=== PATIENT | male | born 1970 | race Caucasian/White ===

== ENCOUNTER 2017-01-21 17:12 | Inpatient (IN) | payer MEDICARE ==
--- NOTE | ~2017-01-21 | DS ---
Discharge Summary [id number] [place]. [address] NAME: ESSIE HINKLE : 66 STATUS : DIS IN PAT#: [id number] AGE: 46 ADM/REG DATE : 01/22/17 MR#: [id number] REPORT SERV DATE: 01/26/17 DICTATED BY: RADHA ZAMBRANO DATE: 01/25/17 REPORT STATUS : Draft TRANSCRIBED BY: MODL DATE: 01/25/17 ADMISSION DATE: 01/22/2017 DISCHARGE DATE: 01/25/2017 PRINCIPAL DIAGNOSIS: Abdominal wall abscess due to MRSA associated with a suprapubic catheter. SECONDARY DIAGNOSES: Urinary tract infection due to Pseudomonas aeruginosa and Enterococcus faecalis. Also type 2 diabetes exacerbated by infection, chronic paraplegia, obesity with sleep apnea, and chronic decubitus ulcer. HISTORY OF PRESENT ILLNESS: Please see Dr. Bhupinder Montague's dictation of 01/21/2017. HOSPITAL COURSE: Admitted with abdominal wall cellulitis, UTI. The patient received broad- spectrum antibiotics. Cultures grew out MRSA of the abscess and Pseudomonas and enterococcus in the urine. He was seen by Dr. Escobar who replaced suprapubic catheter on 01/24/2017 without complications. Arrangements were made for him to return home with fosfomycin for three additional doses and doxycycline to continue five more days of therapy for his abdominal wall cellulitis. Other medications were unchanged. TIARA/ARNOLD Radha Zambrano M.D. / [id number] CC: Brenna Pinon M.D. J. Patrick Dilworth, M.D.
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
[2017-01-21 17:06] LABS: BASOPHILS 0.4 %; BASOPHILS ABSOLUTE 0.03 10/3/uL (0.0-0.16); EOSINOPHILS 3.2 %; EOSINOPHILS ABSOLUTE 0.26 10/3/uL (0.0-0.53); ER CBC TAT 0 Hrs 05 Mins; HEMATOCRIT 48.9 % (40.0-51.0); HEMOGLOBIN 16.7 g/dL (13.6-17.8); IMMATURE GRANULOCYTES 0.7 %; IMMATURE GRANULOCYTES ABSOLUTE 0.06 10/3/uL (0.0-0.11); LYMPHOCYTES 20.2 %; LYMPHOCYTES ABSOLUTE 1.65 10/3/uL (0.67-4.30); MEAN CORPUS HGB CONC 34.2 g/dL (32.0-36.0); MEAN CORPUSCULAR HEMOGLOB 29.4 pg (26.0-34.0); MEAN CORPUSCULAR VOLUME 86.1 fL (80-100); MONOCYTES 5.6 %; MONOCYTES ABSOLUTE 0.46 10/3/uL (0.21-1.20); NEUTROPHILS 69.9 %; NEUTROPHILS ABSOLUTE 5.69 10/3/uL (2.02-8.40); PLATELET COUNT 210 10/3/uL (150-400); RBC DISTRIBUTION WIDTH 14.7 % (12.0-16.0); RED CELL COUNT 5.68 10/6/uL (4.7-6.1); WHITE BLOOD CELLS 8.2 10/3/uL (4.5-10.5)
[2017-01-21 17:08] LABS: MANUAL DIFF NO %
[~2017-01-21 17:12] MED LIST: ACET500CAP PO; ACETSUP650 PR; ACIDOPHILU1 PO; ACIDOPHILU2 PO; ADVIL PO; BAC PO; BACDS PO; BACLOFEN PUMP; BACLOFEN20 MG PO; CALCIUM + VIT D PO; CALCIUM PO; CALCIUM/MAG PO; CALTRA600D PO; CINNAMON; CINNAMON 500 MG PO; CINNAMON CAPS PO; CINNAMON PO; CINNAMONPO PO; CLEOCIN300 MG PO; CRANBERRY; CRANBERRY 4200 MG PO; CRANBERRY PILLS; CRANBERRY PO; CRANBERRY/VIT C PO; CRANBERRY1 TAB OR; CRANBERRY1 TAB PO; CRANBERRY300 MG OR; CRANBERRY400 MG PO; DANTRIUM50 MG PO; DANTROLENE PO; DETROL2 PO; DETROLLA4 PO; DIL2TAB PO; DIL4TAB PO; DSS PO; ENABLEX15 PO; FERROUS SULF325 M1 PO; FERROUS SULFATE PO; FESO4 PO; FLORASTOR250 MG PO; FLUCON1 PO; FORTAMET500 MG PO; GLUCOTROL5 PO; GLUCPH PO; GLUMETZA500 MG PO; HYDROCODONE PO; HYDROCORTISO2.5 % TOP; IRON; IRON PO; IRON160 MG PO; IRON325 MG PO; KURIC2 % TOP; LIOR10 PO; LORT7 PO; LORTAB 5 PO; LORTAB10 PO; MAX1 IV; MAXIPIME IV; MELA3 PO; MELATONIN PO; MELATONIN1 M1 PO; MELATONIN5 M1 PO; MSCONTIN PO; MULTIPLE VIT PO; MULTIVIT/MIN PO; MULTIVITAMI1 PO; NEUR100 PO; NEUR300 PO; NORCO1 TA1 PO; NYSTOP100000 MG TOP; OTC CALCIUM PO; OXYCON20 PO; PERCOCET1 TA4 PO; PRILO PO; PRILOSEC40 MG PO; PROTONIX PO; QUESLITE PO; RESTORA PO; T PO; TESTOSTERONE IM; TEXACORT TOP; THERGRANM PO; ULTRAM50 PO; V5 PO; VALIUM10 MG PO; VIT C E; VITAMIN C; VITAMIN C PO; VITC500 PO; ZINC; ZINC 50 MG PO; ZINC PO; ZINC220C PO; ZOFRAN2ML IM; ZOSYN375 IV; ZYVOXPO PO; [UNRECOGNIZED DRUG - OTHER]; [UNRECOGNIZED DRUG - OTHER] PO
[2017-01-21 17:16] LABS: INTERNATIONAL NORMAL RATI 1.1 UNITS (-); PARTIAL THROMBO TIME 32.9 SEC (22.5-37.2); PROTIME (NOT ORD) 13.6 SEC (12.0-14.5)
[2017-01-21 17:21] LABS: A/G RATIO 0.8 (0.7-1.9); ALBUMIN 3.4 G/DL (3.5-5.0); ALKALINE PHOSPHATASE 91 U/L (45-117); BUN (BLOOD UREA NITROGEN) 15 MG/DL (6-23); CALCIUM, SERUM 8.9 MG/DL (8.5-10.4); CHLORIDE, SERUM 103 MMOL/L (96-112); CO2 (CARBON DIOXIDE) 28 MMOL/L (24-34); CREATININE 0.65 MG/DL (0.70-1.30); GFR AFRICAN AMERICAN 133 ML/MIN (>=60); GFR NON AFRICAN AMERICAN 115 ML/MIN (>=60); GLOBULIN 4.4 G/DL (2.5-4.1); POTASSIUM, SERUM 4.1 MMOL/L (3.5-5.3); SGOT(AST) 22 U/L (5-40); SGPT(ALT) 32 U/L (5-65); SODIUM, SERUM 139 MMOL/L (135-148); TOTAL BILIRUBIN 0.4 MG/DL (0-1.2); TOTAL PROTEIN 7.8 G/DL (6.0-8.5)
[2017-01-21 17:22] LABS: GLUCOSE, SERUM 159 MG/DL (60-99)
[2017-01-21 17:25] LABS: ASCORBIC ACID (UR NOT ORDER) 40 (NEG); BILIRUBIN, URINE NEGATIVE (NEG); KETONE, URINE NEGATIVE (NEG); LEUKOCYTE ESTERASE(NOT OR LARGE (NEG); NITRITE (URINE) NEG (NEG); WBC (NOT ORDERED) (RFLEX) 55 (0-5)
[2017-01-21 17:36] LABS: LACTATE 1.8 MMOL/L (0.3-2.4)
[2017-01-21 18:15] LABS: PROCALCITONIN <0.05 ng/mL (<0.5)
[2017-01-21] MEDS ORDERED: NEUR100 PO (18:26)
[2017-01-21] MEDS ORDERED: V5 PO (18:27)
[2017-01-21] MEDS ORDERED: VALIUM10 MG PO (18:28)
[2017-01-21] MEDS ORDERED: DANTRIUM50 MG PO (18:30)
[2017-01-21] MEDS ORDERED: BACLOFEN20 MG PO (18:30)
[2017-01-21] MEDS ORDERED: OXYCON20 PO (18:31)
[2017-01-21] MEDS ORDERED: PROTONIX PO (18:32)
[2017-01-21] MEDS ORDERED: DETROLLA4 PO (18:32)
[2017-01-21] MEDS ORDERED: NYSTATPOW TOP (18:34)
[2017-01-21] MEDS ORDERED: DIL4TAB PO (18:34)
[2017-01-21] MEDS ORDERED: FERROUS SULF325 M1 PO (18:36)
[2017-01-21] MEDS ORDERED: CRANBERRY PO (18:36)
[2017-01-21] MEDS ORDERED: MULTIVITAMI1 PO (18:37)
[2017-01-21] MEDS ORDERED: CINNAMONPO PO (18:38)
[2017-01-21] MEDS ORDERED: ACIDOPHILU2 PO (18:38)
[2017-01-21] MEDS ORDERED: TUMSROLL PO (18:39)
[2017-01-21] MEDS ORDERED: ZINC PO (18:39)
[2017-01-21] MEDS ORDERED: MELATONIN5 M1 PO (18:40)
[2017-01-21] MEDS ORDERED: VITC500 PO (18:40)
[2017-01-21] MEDS ORDERED: TESTOST CYP100 MG/ML IM (18:41)
[2017-01-21] MEDS ORDERED: DSS PO (18:41)
[2017-01-22 05:11] LABS: BASOPHILS 0.4 %; BASOPHILS ABSOLUTE 0.04 10/3/uL (0.0-0.16); EOSINOPHILS ABSOLUTE 0.29 10/3/uL (0.0-0.53); HEMATOCRIT 44.1 % (40.0-51.0); HEMOGLOBIN 15.2 g/dL (13.6-17.8); IMMATURE GRANULOCYTES 0.4 %; IMMATURE GRANULOCYTES ABSOLUTE 0.04 10/3/uL (0.0-0.11); LYMPHOCYTES 14.7 %; LYMPHOCYTES ABSOLUTE 1.44 10/3/uL (0.67-4.30); MEAN CORPUS HGB CONC 34.5 g/dL (32.0-36.0); MEAN CORPUSCULAR HEMOGLOB 29.3 pg (26.0-34.0); MEAN PLATELET VOLUME 9.1 fL (9.2-13.0); MONOCYTES 9.6 %; MONOCYTES ABSOLUTE 0.94 10/3/uL (0.21-1.20); NEUTROPHILS 71.9 %; NEUTROPHILS ABSOLUTE 7.07 10/3/uL (2.02-8.40); PLATELET COUNT 216 10/3/uL (150-400); RBC DISTRIBUTION WIDTH 14.7 % (12.0-16.0); RED CELL COUNT 5.19 10/6/uL (4.7-6.1); WHITE BLOOD CELLS 9.8 10/3/uL (4.5-10.5)
[2017-01-22 05:15] LABS: MANUAL DIFF NO %
[2017-01-22 05:24] LABS: BUN (BLOOD UREA NITROGEN) 15 MG/DL (6-23); CALCIUM, SERUM 8.4 MG/DL (8.5-10.4); CHLORIDE, SERUM 106 MMOL/L (96-112); CO2 (CARBON DIOXIDE) 28 MMOL/L (24-34); CREATININE 0.67 MG/DL (0.70-1.30); GFR AFRICAN AMERICAN 132 ML/MIN (>=60); GFR NON AFRICAN AMERICAN 114 ML/MIN (>=60); GLUCOSE, SERUM 165 MG/DL (60-99); POTASSIUM, SERUM 3.7 MMOL/L (3.5-5.3); SODIUM, SERUM 142 MMOL/L (135-148)
[2017-01-23 04:52] LABS: BASOPHILS 0.3 %; BASOPHILS ABSOLUTE 0.02 10/3/uL (0.0-0.16); EOSINOPHILS 3.4 %; EOSINOPHILS ABSOLUTE 0.25 10/3/uL (0.0-0.53); HEMATOCRIT 43.1 % (40.0-51.0); HEMOGLOBIN 14.4 g/dL (13.6-17.8); IMMATURE GRANULOCYTES 0.5 %; IMMATURE GRANULOCYTES ABSOLUTE 0.04 10/3/uL (0.0-0.11); LYMPHOCYTES 25.5 %; LYMPHOCYTES ABSOLUTE 1.88 10/3/uL (0.67-4.30); MANUAL DIFF NO %; MEAN CORPUS HGB CONC 33.4 g/dL (32.0-36.0); MEAN CORPUSCULAR HEMOGLOB 28.9 pg (26.0-34.0); MEAN CORPUSCULAR VOLUME 86.5 fL (80-100); MEAN PLATELET VOLUME 8.8 fL (9.2-13.0); MONOCYTES 8.7 %; MONOCYTES ABSOLUTE 0.64 10/3/uL (0.21-1.20); NEUTROPHILS 61.6 %; NEUTROPHILS ABSOLUTE 4.54 10/3/uL (2.02-8.40); PLATELET COUNT 207 10/3/uL (150-400); RBC DISTRIBUTION WIDTH 14.7 % (12.0-16.0); RED CELL COUNT 4.98 10/6/uL (4.7-6.1); WHITE BLOOD CELLS 7.4 10/3/uL (4.5-10.5)
[2017-01-23 05:14] LABS: BUN (BLOOD UREA NITROGEN) 13 MG/DL (6-23); CALCIUM, SERUM 8.4 MG/DL (8.5-10.4); CHLORIDE, SERUM 107 MMOL/L (96-112); CO2 (CARBON DIOXIDE) 29 MMOL/L (24-34); CREATININE 0.61 MG/DL (0.70-1.30); GFR AFRICAN AMERICAN 137 ML/MIN (>=60); GFR NON AFRICAN AMERICAN 118 ML/MIN (>=60); POTASSIUM, SERUM 3.9 MMOL/L (3.5-5.3); SODIUM, SERUM 142 MMOL/L (135-148)
[2017-01-23 05:17] LABS: GLUCOSE, SERUM 92 MG/DL (60-99)
[2017-01-24 05:16] LABS: BASOPHILS 0.4 %; BASOPHILS ABSOLUTE 0.03 10/3/uL (0.0-0.16); EOSINOPHILS 3.4 %; EOSINOPHILS ABSOLUTE 0.28 10/3/uL (0.0-0.53); HEMATOCRIT 42.8 % (40.0-51.0); HEMOGLOBIN 14.5 g/dL (13.6-17.8); IMMATURE GRANULOCYTES 0.5 %; IMMATURE GRANULOCYTES ABSOLUTE 0.04 10/3/uL (0.0-0.11); LYMPHOCYTES 17.2 %; LYMPHOCYTES ABSOLUTE 1.43 10/3/uL (0.67-4.30); MANUAL DIFF NO %; MEAN CORPUS HGB CONC 33.9 g/dL (32.0-36.0); MEAN CORPUSCULAR HEMOGLOB 29.2 pg (26.0-34.0); MEAN CORPUSCULAR VOLUME 86.3 fL (80-100); MONOCYTES 6.8 %; MONOCYTES ABSOLUTE 0.57 10/3/uL (0.21-1.20); NEUTROPHILS 71.7 %; NEUTROPHILS ABSOLUTE 5.98 10/3/uL (2.02-8.40); PLATELET COUNT 173 10/3/uL (150-400); RBC DISTRIBUTION WIDTH 14.8 % (12.0-16.0); RED CELL COUNT 4.96 10/6/uL (4.7-6.1); WHITE BLOOD CELLS 8.3 10/3/uL (4.5-10.5)
[2017-01-24 05:28] LABS: BUN (BLOOD UREA NITROGEN) 10 MG/DL (6-23); CALCIUM, SERUM 8.4 MG/DL (8.5-10.4); CHLORIDE, SERUM 109 MMOL/L (96-112); CO2 (CARBON DIOXIDE) 28 MMOL/L (24-34); CREATININE 0.55 MG/DL (0.70-1.30); FERRITIN 174 NG/ML (26-388); GFR AFRICAN AMERICAN 143 ML/MIN (>=60); GFR NON AFRICAN AMERICAN 123 ML/MIN (>=60); GLUCOSE, SERUM 123 MG/DL (60-99); POTASSIUM, SERUM 3.8 MMOL/L (3.5-5.3); SODIUM, SERUM 145 MMOL/L (135-148)
[2017-01-25] MEDS ORDERED: MONUROL PO (12:24)
[2017-01-25] MEDS ORDERED: DORYX100 MG PO (12:35)
== END 2017-01-25 13:15 | disposition home health service (06) | DRG 698 ==
LOC: ER 17:12 → CDU1 19:07
PROVIDERS: Emergency Medicine; Internal Medicine
DX: T83.518A Infection and inflammatory reaction due to other urinary catheter, initial encounter (principal); L89.154 Pressure ulcer of sacral region, stage 4; G82.20 Paraplegia, unspecified; Z68.41 Body mass index [BMI] 40.0-44.9, adult; L03.311 Cellulitis of abdominal wall; N39.0 Urinary tract infection, site not specified; N31.9 Neuromuscular dysfunction of bladder, unspecified; V89.2XXS Person injured in unspecified motor-vehicle accident, traffic, sequela; E66.01 Morbid (severe) obesity due to excess calories; B95.2 Enterococcus as the cause of diseases classified elsewhere; B95.62 Methicillin resistant Staphylococcus aureus infection as the cause of diseases classified elsewhere; Z22.39 Carrier of other specified bacterial diseases; Z93.3 Colostomy status; Z90.79 Acquired absence of other genital organ(s); Z90.49 Acquired absence of other specified parts of digestive tract; Z83.3 Family history of diabetes mellitus; Z80.0 Family history of malignant neoplasm of digestive organs
CPT/HCPCS: 74177; 80048; 80053; 80202; 81001; 82728; 82962; 83605; 84145; 85025; 85610; 85730; 87040; 87070; 87077; 87086; 87186; 87205; 99285; A9270-GY; J0692; J3260; J3370; Q9967

== ENCOUNTER 2017-03-15 19:57 | Inpatient (IN) | payer MEDICARE ==
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
[~2017-03-15 19:57] MED LIST changes: +DORYX100 MG PO; +MONUROL PO; +NYSTATPOW TOP; +TESTOST CYP100 MG/ML IM; +TUMSROLL PO
[2017-03-15 21:17] LABS: BASOPHILS 0.6 %; BASOPHILS ABSOLUTE 0.05 10/3/uL (0.0-0.16); EOSINOPHILS 3.1 %; EOSINOPHILS ABSOLUTE 0.28 10/3/uL (0.0-0.53); ER CBC TAT 0 Hrs 07 Mins; HEMATOCRIT 46.6 % (40.0-51.0); HEMOGLOBIN 15.4 g/dL (13.6-17.8); IMMATURE GRANULOCYTES 0.6 %; IMMATURE GRANULOCYTES ABSOLUTE 0.05 10/3/uL (0.0-0.11); LYMPHOCYTES 15.7 %; LYMPHOCYTES ABSOLUTE 1.42 10/3/uL (0.67-4.30); MEAN CORPUSCULAR HEMOGLOB 28.5 pg (26.0-34.0); MEAN CORPUSCULAR VOLUME 86.1 fL (80-100); MONOCYTES 10.8 %; MONOCYTES ABSOLUTE 0.98 10/3/uL (0.21-1.20); NEUTROPHILS 69.2 %; NEUTROPHILS ABSOLUTE 6.28 10/3/uL (2.02-8.40); PLATELET COUNT 199 10/3/uL (150-400); RBC DISTRIBUTION WIDTH 14.6 % (12.0-16.0); RED CELL COUNT 5.41 10/6/uL (4.7-6.1); WHITE BLOOD CELLS 9.1 10/3/uL (4.5-10.5)
[2017-03-15 21:18] LABS: MANUAL DIFF NO %
[2017-03-15 21:33] LABS: A/G RATIO 0.8 (0.7-1.9); ALBUMIN 3.1 G/DL (3.5-5.0); ALKALINE PHOSPHATASE 84 U/L (45-117); BUN (BLOOD UREA NITROGEN) 10 MG/DL (6-23); CALCIUM, SERUM 8.9 MG/DL (8.5-10.4); CHLORIDE, SERUM 100 MMOL/L (96-112); CO2 (CARBON DIOXIDE) 35 MMOL/L (24-34); CREATININE 0.66 MG/DL (0.70-1.30); GFR AFRICAN AMERICAN 133 ML/MIN (>=60); GFR NON AFRICAN AMERICAN 114 ML/MIN (>=60); GLUCOSE, SERUM 120 MG/DL (60-99); POTASSIUM, SERUM 3.9 MMOL/L (3.5-5.3); SGOT(AST) 18 U/L (5-40); SGPT(ALT) 27 U/L (5-65); SODIUM, SERUM 138 MMOL/L (135-148); TOTAL BILIRUBIN 0.5 MG/DL (0-1.2); TOTAL PROTEIN 7.1 G/DL (6.0-8.5)
[2017-03-15] MEDS ORDERED: TESTOST CYP100 MG/ML IM (22:10)
[2017-03-15] MEDS ORDERED: PROTONIX PO (22:10)
[2017-03-15] MEDS ORDERED: DETROLLA4 PO (22:10)
[2017-03-15] MEDS ORDERED: CRANBERRY 8400MG PO (22:12)
[2017-03-15] MEDS ORDERED: ACIDOPHILU2 PO (22:13)
[2017-03-15] MEDS ORDERED: ZINC 50MG OTC PO (22:13)
[2017-03-15] MEDS ORDERED: ZINC OTC PO (22:14)
[2017-03-15] MEDS ORDERED: MAG PO (22:14)
[2017-03-15] MEDS ORDERED: FERROUS SULF325 M1 PO (22:14)
[2017-03-15] MEDS ORDERED: VITC500 PO (22:14)
[2017-03-15] MEDS ORDERED: CAL PO (22:14)
[2017-03-15] MEDS ORDERED: CINNAMONPO PO (22:15)
[2017-03-15] MEDS ORDERED: DANTRIUM50 MG PO (22:15)
[2017-03-15] MEDS ORDERED: BACLOFEN20 MG PO (22:15)
[2017-03-15] MEDS ORDERED: VALIUM10 MG PO (22:16)
[2017-03-15] MEDS ORDERED: NEUR100 PO (22:16)
[2017-03-15] MEDS ORDERED: V5 PO (22:16)
[2017-03-15] MEDS ORDERED: DSS PO (22:16)
[2017-03-15] MEDS ORDERED: DIL4TAB PO (22:17)
[2017-03-15] MEDS ORDERED: MULTIVIT/MIN PO (22:17)
[2017-03-15] MEDS ORDERED: MELATONIN5 M1 PO (22:17)
[2017-03-15] MEDS ORDERED: OXYCON20 PO (22:18)
[2017-03-15] MEDS ORDERED: NYSTATPOW TOP (22:18)
[2017-03-16 06:14] LABS: BASOPHILS 0.3 %; BASOPHILS ABSOLUTE 0.03 10/3/uL (0.0-0.16); EOSINOPHILS 3.6 %; EOSINOPHILS ABSOLUTE 0.35 10/3/uL (0.0-0.53); HEMATOCRIT 42.4 % (40.0-51.0); HEMOGLOBIN 14.3 g/dL (13.6-17.8); IMMATURE GRANULOCYTES 0.4 %; IMMATURE GRANULOCYTES ABSOLUTE 0.04 10/3/uL (0.0-0.11); LYMPHOCYTES 24.5 %; MEAN CORPUS HGB CONC 33.7 g/dL (32.0-36.0); MEAN CORPUSCULAR HEMOGLOB 28.9 pg (26.0-34.0); MEAN CORPUSCULAR VOLUME 85.7 fL (80-100); MEAN PLATELET VOLUME 9.2 fL (9.2-13.0); MONOCYTES ABSOLUTE 0.78 10/3/uL (0.21-1.20); NEUTROPHILS 63.2 %; NEUTROPHILS ABSOLUTE 6.18 10/3/uL (2.02-8.40); PLATELET COUNT 218 10/3/uL (150-400); RBC DISTRIBUTION WIDTH 14.8 % (12.0-16.0); RED CELL COUNT 4.95 10/6/uL (4.7-6.1); WHITE BLOOD CELLS 9.8 10/3/uL (4.5-10.5)
[2017-03-16 06:19] LABS: INTERNATIONAL NORMAL RATI 1.2 UNITS (-); MANUAL DIFF NO %; PARTIAL THROMBO TIME 32.6 SEC (22.5-37.2); PROTIME (NOT ORD) 14.9 SEC (12.0-14.5)
[2017-03-16 06:45] LABS: A/G RATIO 0.9 (0.7-1.9); ALBUMIN 2.9 G/DL (3.5-5.0); BUN (BLOOD UREA NITROGEN) 8 MG/DL (6-23); C-REACTIVE PROTEIN 37.1 MG/L (<8.0); CALCIUM, SERUM 8.5 MG/DL (8.5-10.4); CHLORIDE, SERUM 104 MMOL/L (96-112); CREATININE 0.47 MG/DL (0.70-1.30); GFR AFRICAN AMERICAN 152 ML/MIN (>=60); GFR NON AFRICAN AMERICAN 131 ML/MIN (>=60); GLOBULIN 3.4 G/DL (2.5-4.1); GLUCOSE, SERUM 112 MG/DL (60-99); POTASSIUM, SERUM 3.6 MMOL/L (3.5-5.3); SGOT(AST) 18 U/L (5-40); SGPT(ALT) 24 U/L (5-65); SODIUM, SERUM 139 MMOL/L (135-148); TOTAL BILIRUBIN 0.7 MG/DL (0-1.2); TOTAL PROTEIN 6.3 G/DL (6.0-8.5); ULTRASENSITIVE TSH 0.988 MCIU/ML (0.358-3.740)
[2017-03-16 06:47] LABS: ALKALINE PHOSPHATASE 69 U/L (45-117); CO2 (CARBON DIOXIDE) 27 MMOL/L (24-34)
[2017-03-16 07:58] LABS: PROCALCITONIN <0.05 ng/mL (<0.5)
[2017-03-16 10:40] LABS: SED RATE 22 MM/HR (0-15)
[2017-03-17 05:56] LABS: BASOPHILS 0.7 %; BASOPHILS ABSOLUTE 0.05 10/3/uL (0.0-0.16); EOSINOPHILS 3.9 %; EOSINOPHILS ABSOLUTE 0.29 10/3/uL (0.0-0.53); HEMOGLOBIN 14.6 g/dL (13.6-17.8); IMMATURE GRANULOCYTES 0.8 %; IMMATURE GRANULOCYTES ABSOLUTE 0.06 10/3/uL (0.0-0.11); LYMPHOCYTES 24.3 %; LYMPHOCYTES ABSOLUTE 1.82 10/3/uL (0.67-4.30); MEAN CORPUS HGB CONC 33.2 g/dL (32.0-36.0); MEAN CORPUSCULAR HEMOGLOB 28.9 pg (26.0-34.0); MONOCYTES 9.1 %; MONOCYTES ABSOLUTE 0.68 10/3/uL (0.21-1.20); NEUTROPHILS 61.2 %; NEUTROPHILS ABSOLUTE 4.59 10/3/uL (2.02-8.40); PLATELET COUNT 205 10/3/uL (150-400); RBC DISTRIBUTION WIDTH 14.9 % (12.0-16.0); RED CELL COUNT 5.06 10/6/uL (4.7-6.1); WHITE BLOOD CELLS 7.5 10/3/uL (4.5-10.5)
[2017-03-17 05:57] LABS: MANUAL DIFF NO %
[2017-03-17 06:15] LABS: A/G RATIO 0.8 (0.7-1.9); ALKALINE PHOSPHATASE 72 U/L (45-117); BUN (BLOOD UREA NITROGEN) 8 MG/DL (6-23); CALCIUM, SERUM 8.7 MG/DL (8.5-10.4); CHLORIDE, SERUM 106 MMOL/L (96-112); CO2 (CARBON DIOXIDE) 29 MMOL/L (24-34); CREATININE 0.61 MG/DL (0.70-1.30); GFR AFRICAN AMERICAN 137 ML/MIN (>=60); GFR NON AFRICAN AMERICAN 118 ML/MIN (>=60); GLOBULIN 3.6 G/DL (2.5-4.1); GLUCOSE, SERUM 111 MG/DL (60-99); POTASSIUM, SERUM 3.8 MMOL/L (3.5-5.3); SGOT(AST) 19 U/L (5-40); SGPT(ALT) 24 U/L (5-65); SODIUM, SERUM 141 MMOL/L (135-148); TOTAL BILIRUBIN 0.6 MG/DL (0-1.2); TOTAL PROTEIN 6.6 G/DL (6.0-8.5)
== END 2017-03-21 18:18 | DRG 592 ==
LOC: ER 19:57 → 4SO 22:38
PROVIDERS: Emergency Medicine; Hospitalist; Student in an Organized Health Care Education/Training Program
DX: L89.154 Pressure ulcer of sacral region, stage 4 (principal); G82.20 Paraplegia, unspecified; Z68.41 Body mass index [BMI] 40.0-44.9, adult; S24.103S Unspecified injury at T7-T10 level of thoracic spinal cord, sequela; E66.01 Morbid (severe) obesity due to excess calories; G47.33 Obstructive sleep apnea (adult) (pediatric); K21.9 Gastro-esophageal reflux disease without esophagitis; Z79.899 Other long term (current) drug therapy; Z87.891 Personal history of nicotine dependence; Z93.3 Colostomy status; Z87.442 Personal history of urinary calculi; Z90.49 Acquired absence of other specified parts of digestive tract; Z89.429 Acquired absence of other toe(s), unspecified side; Z87.440 Personal history of urinary (tract) infections; Z86.14 Personal history of Methicillin resistant Staphylococcus aureus infection; Z88.5 Allergy status to narcotic agent; V89.2XXS Person injured in unspecified motor-vehicle accident, traffic, sequela; Z93.59 Other cystostomy status; Z79.891 Long term (current) use of opiate analgesic; I10 Essential (primary) hypertension; E11.9 Type 2 diabetes mellitus without complications; M25.512 Pain in left shoulder
CPT/HCPCS: 71010; 80053; 83036; 83605; 83735; 84145; 84443; 85025; 85610; 85652; 85730; 86140; 97162-GP; 99285; A9270-GY; G8978-CM-GP; G8979-CM-GP; J1170